=== PATIENT | female | born 1995 | race Caucasian/White ===

== ENCOUNTER 2023-06-20 14:51 | Emergency (ER) | payer MEDICAID ==
[~2023-06-20] VITALS: Ht 162.6 cm; Wt 92.6 kg
[2023-06-20] VITALS (7 sets, daily range): BP systolic 117; BP diastolic 73; PULSE 86–112; RESP 16; TEMP 99.4; O2SAT 97
[~2023-06-20 14:51] MED LIST: IBUP-1573 PO; NABU-139 PO; [UNRECOGNIZED DRUG - CODE] PO
[2023-06-20] MEDS ORDERED: ipratropium/albuterol 3ml nebule NEB ONE ×2 (19:10)
[2023-06-20] MEDS ORDERED: predniSONE 20 mg tablet PO ONE (19:10)
--- NOTE | 2023-06-20 19:17 | NUR ---
xray at [facility]
[2023-06-20] MEDS ORDERED: albuterol 2.5 MG/3 ML nebule CONTNEB PRN ×2 (19:45→21:55)
--- NOTE | 2023-06-20 20:33 | NUR ---
PT REPORTS FEELING BETTER WITH NEB
[2023-06-20] MEDS ORDERED: ALB0.5UD IH (22:14)
[2023-06-20] MEDS ORDERED: PRED20TA PO (22:14)
== END 2023-06-20 23:16 | disposition home or self-care (01) ==
LOC: ER 14:51
DX: U07.1 COVID-19 (principal); J45.51 Severe persistent asthma with (acute) exacerbation; Z88.0 Allergy status to penicillin; Z88.8 Allergy status to other drugs, medicaments and biological substances; Z79.899 Other long term (current) drug therapy
CPT/HCPCS: 36415; 71045; 87811; 94640; 94644; 94645; 99291; J7512; 94760

== ENCOUNTER 2025-01-23 06:46 | Emergency (ER) | payer MEDICAID ==
[~2025-01-23] VITALS: Ht 162.6 cm; Wt 90.9 kg
[2025-01-23 07:24] LABS: STREP A SCREEN NEGATIVE (Neg)
[2025-01-23 07:52] VITALS: TEMP 97.8
[2025-01-23] MEDS: dexamethasone sod phosphate 10mg/ml inj PO STA (09:01)
[2025-01-23] MEDS: diphenhydrAMINE 25 MG/10 ML UD oral solution PO ONE (09:01)
[2025-01-23 09:04] VITALS: BP 114/71; PULSE 87; RESP 16; O2SAT 98
== END 2025-01-23 09:06 | disposition home or self-care (01) ==
LOC: ER 06:47
DX: J02.9 Acute pharyngitis, unspecified (principal); B34.9 Viral infection, unspecified; R10.9 Unspecified abdominal pain; J45.909 Unspecified asthma, uncomplicated; Z88.0 Allergy status to penicillin; Z20.822 Contact with and (suspected) exposure to COVID-19
CPT/HCPCS: 36415; 87081; 87502; 87503; 87811; 87880; 99283; J1100; Q0163